=== PATIENT | female | born 1955 | race Caucasian/White ===

== ENCOUNTER → 2021-07-14 | Outpatient (CLI) | payer MEDICARE ==
[2021-07-14 10:58] LABS: CHOLESTEROL/HDL RATIO 4.1
[2021-07-15 01:09] LABS: MICROALB RD UR 12.6 ug/mL (Not Estab.)
== END ==
LOC: LAB 10:03
DX: E11.65 Type 2 diabetes mellitus with hyperglycemia (principal); E04.1 Nontoxic single thyroid nodule; E66.9 Obesity, unspecified
CPT/HCPCS: 80061; 82043; 82530; 82570; 84443